=== PATIENT | male | born 1950 | race Caucasian/White ===

== ENCOUNTER → 2025-01-18 | Outpatient (CLI) | payer MEDICARE, SELFPAY ==
--- NOTE | 2025-01-18 14:00 | FLU_PTH ---
PATIENT: CHERYL DORANTES LOC: [facility] U#:[id number] AGE/SX: 74/M ROOM: RE01/18/[address]: Dr. Mac Palmer MD : [id number] BED: DIS: 01/18/2025 SPEC #: [id number] RECD: 01/18/25 15:39 STATUS: ELAYNE RELei #: [id number] CHRISTOFER: 01/18/25 14:[address]: Mac Palmer DEPT: CYTOLOGY RECD BY: Gwyn Capone ENTERED: 01/21/25 08:54 SP TYPE: Fluid OTHR DR: Dr. Juan Roca DO Tissues: A - Thyroid gland, NOS B - Thyroid gland, NOS Procedures: Special Stain Group II Surgery Specimen Level IV Cytospin Fluid HEADER OPERATION: Fine needle aspiration of left thyroid nodule x2 PRE-OP DIAGNOSIS: Left thyroid nodule x2 TISSUE SUBMITTED: A- Left inferior medial thyroid nodule, B- Left superior lateral thyroid nodule DIAGNOSIS CYTOLOGY A. Thyroid, left inferior medial, FNA: * Atypia of undetermined significance (TBS III) - see Comment. B. Thyroid, left superior lateral, nodule, FNA: * Atypia of undetermined significance (TBS III) - see Comment. COMMENT Per recommendations and a clinician-approved plan (a call was made to the referring doctor about the recommendation), genomic testing (Afirma) has been submitted. Results will be reported as an addendum and faxed to clinician. CYTOLOGY STUDY Slides are reviewed. CYTOLOGY GROSS A. Received is 30 ml of red fluid cytolyt with particles, 4 DQ slides labeled with the patient's name and designated per the requisition as Left inferior medial thyroid. Submitted for cytology preparation. B. Received is 30 ml of light-red fluid cytolyt with particles, 4 DQ slides labeled with the patient's name and designated per the requisition as Left superior lateral thyroid nodule. Submitted for cytology preparation. Mr 01/21/2025 CPT: 62037d7, [id number] ADDENDUM ADDENDUM ADDENDUM ADDENDUM ADDENDUM ADDENDUM ADDENDUM ADDENDUM ADDENDUM ADDENDUM ADDENDUM ADDENDUM ADDENDUM ADDENDUM ADDENDUM ADDENDUM ADDENDUM ADDENDUM 02/12/2025 10:23 ADDENDUM 02/12/2025 10:23 ADDENDUM 02/12/2025 10:23 ADDENDUM 02/12/2025 10:23 ADDENDUM 02/12/2025 10:23 AFIRMA RESULTS REPORT - A RESULTS INTERPRETATION: The result of this 1.7 cm [place] III nodule A is Afirma GSC benign, which suggests a low risk of cancer of approximately 4%. Treatment like a cytologically benign nodule may be appropriate, including clinical correlation. Afirma XA is not performed on GSC Benign nodules. TERT promoter region analysis is not performed on GSC Benign nodules. AFIRMA RESULTS REPORT - B RESULTS INTERPRETATION: The result of this 1.6 cm [place] III nodule A is Afirma GSC benign, which suggests a low risk of cancer of approximately 4%. Treatment like a cytologically benign nodule may be appropriate, including clinical correlation. Afirma XA is not performed on GSC Benign nodules. TERT promoter region analysis is not performed on GSC Benign nodules. Please see complete report in e-chart or EMR
== END | disposition home or self-care (01) ==
PROVIDERS: PCP Family Medicine; Referring Provider Surgery; Visit Provider Surgery
DX: E04.1 Nontoxic single thyroid nodule (principal)
CPT/HCPCS: 88108; 88305; 88313